=== PATIENT | male | born 1955 | race Native Hawaiian/Other Pacific Islander ===

== ENCOUNTER 2021-10-19 00:28 | Inpatient (IN) | payer SELFPAY ==
[~2021-10-19] VITALS: Ht 172.7 cm; Wt 72.6 kg
--- NOTE | 2021-10-19 00:49 | NUR ---
BIBA TAKEN TO BED #12
[2021-10-19 00:52] VITALS: BP 163/92
--- NOTE | 2021-10-19 00:52 | NUR ---
BIBA FROM HOME C/O GENERALIZED WEAKNESS. C/P WITH AMBULATION THAT COMES AND GOES AND DISAPPEARS WITH REST. PER PT AND FAMILY PT HAS BEEN FALLING, FEELS NUMBNESS, AND PER PT REPORTS "I CAN'T FEEL MY LEGS SOMETIMES". MEDHX- ASTHMA ALLX- PENICILLINS
[2021-10-19] MEDS ORDERED: NACL 0.9% 1,000 ML IV ONE (01:25)
[2021-10-19] MEDS ORDERED: ACETAMINOPHEN EXTRA STRENGTH 500 MG TAB PO ONE ×2 (01:25→02:35)
--- NOTE | 2021-10-19 01:33 | NUR ---
LAB AT BEDSIDE
[2021-10-19 01:44] LABS: BASOPHILS # (AUTO) 0.1 K/uL (0.00-0.22); BASOPHILS % (AUTO) 0.4 % (0.0-2.0); EOSINOPHILS % (AUTO) 0.2 % (0.0-4.0); HEMATOCRIT 25.2 % (36-52); HEMOGLOBIN 8.8 g/dL (12.0-18.0); LYMPHOCYTES # (AUTO) 0.9 K/uL (2.0-11.5); MEAN CORPUSCULAR HEMOGLOBIN 34 pg (27-31); MEAN CORPUSCULAR HGB CONC 35 g/dL (33-37); MEAN CORPUSCULAR VOLUME 97.6 fL (80-94); MONOCYTES # (AUTO) 1.6 K/uL (0.8-1.0); MONOCYTES % (AUTO) 8.4 % (1.7-9.3); NEUTROPHILS # (AUTO) 16.2 K/uL (1.8-7.7); PLATELET COUNT (AUTO) 597 K/uL (140-450); RED BLOOD CELL COUNT(AUTO) 2.59 MIL/uL (4.20-6.10); RED CELL DISTRIBUTION WIDTH 13.4 % (11.6-13.7); WHITE BLOOD COUNT (AUTO) 18.8 K/uL (4.8-10.8)
--- NOTE | 2021-10-19 01:57 | NUR ---
PT TO CT VIA EDUAR
[2021-10-19 02:16] LABS: ALBUMIN 2.7 g/dL (3.4-5.0); ANION GAP 18.6 (8-16); ASPARTATE AMINOTRANSFERASE 31 U/L (15-37); CARBON DIOXIDE 20.9 mmol/L (21-32); CHLORIDE 84 mmol/L (98-107); GFR ARICAN-AMERICAN 11 mL/min (>90); GLUCOSE 101 mg/dL (74-106); POTASSIUM 5.5 mmol/L (3.5-5.1); THYROID STIMULATING HORMONE 1.49 uIU/mL (0.34-3.74); TOTAL BILIRUBIN 0.6 mg/dL (0.0-1.0)
[2021-10-19 02:18] LABS: CREATININE 6.5 mg/dL (0.6-1.3); SODIUM SERUM 118 mmol/L (136-145); UREA NITROGEN, BLOOD 75 mg/dL (7-18)
[2021-10-19] MEDS ORDERED: cefTRIAXone 1,000 MG VIAL ONE (02:46)
--- NOTE | 2021-10-19 04:08 | NUR ---
Per ER MD pt indicates a need for carrizales insertion. pt made aware and pt would like some time and speak with the ER MD
--- NOTE | 2021-10-19 04:20 | NUR ---
ER MD at bedside speaking with significant other and patient about plan of care and carrizales insertion. RN female cleat blanker at bedside.
[2021-10-19 05:18] LABS: BILIRUBIN,URINE NEGATIVE (NEGATIVE); BLOOD, URINE 3+ (NEGATIVE); COLOR,URINE YELLOW (YELLOW); LEUKOCYTE ESTERASE ,URINE 3+ (NEGATIVE); NITRITE, URINE POSITIVE (NEGATIVE); UGLUCOSE NEGATIVE (NEGATIVE)
[2021-10-19 05:29] LABS: APPEARANCE,URINE SLIGHTLY HAZY (CLEAR)
[2021-10-19 05:30] LABS: WBC,URINE 20-60 /HPF (0-5)
--- NOTE | 2021-10-19 05:33 | NUR ---
pt had a wet BM. pt able to help turn. pt placed danny pads and new sheets. pt tolerated well. Safety measures are in place and will continue to monitor.
[2021-10-19] MEDS ORDERED: DOCUSATE SODIUM 100 MG GELCAP PO PRN (06:35)
[2021-10-19] MEDS ORDERED: POTASSIUM CHLORIDE 10 MEQ TABER PO PRN (06:35)
[2021-10-19] MEDS ORDERED: guaiFENesin DM 200/20 MG-10 ML 10 ML UDC PO PRN (06:35)
[2021-10-19] MEDS ORDERED: NACL 0.9% 1,000 ML IV SCH (06:35)
[2021-10-19] MEDS ORDERED: ZOLPIDEM 5 MG TAB PO PRN (06:35)
[2021-10-19] MEDS ORDERED: ACETAMINOPHEN 325 MG TAB PO PRN (06:35)
--- NOTE | 2021-10-19 07:26 | NUR ---
Pt report given to Elizabeth MOSS. Transfer of care at this time.
--- NOTE | 2021-10-19 07:37 | NUR ---
RECEIVED REPORT FROM NATHANIEL RN. ASSUMED CARE AT THIS TIME, PATIENT LAYING IN BED WITH EYES CLOSED, ON BEDSIDE PATTERNMAKER PLASTER AND PLASTIC, ALL NEEDS MET AT THIS TIME.
--- NOTE | 2021-10-19 07:45 | NUR ---
EMPTIED 1000CC OF RED CLOUDY URINE FROM PATIENTS PLUNKETT BAG
--- NOTE | 2021-10-19 07:47 | NUR ---
Patient will be admitted to care of DR. SIMON. Admited to TELE. Will go to room 110B. Belongings list completed. Report to TAURUS.
[2021-10-19 08:10] LABS: PROTHROMBIN TIME 11.1 secs (10.8-13.4)
[2021-10-19 08:11] LABS: MAGNESIUM 1.5 mg/dL (1.8-2.4); PHOSPHORUS 5.9 mg/dL (2.5-4.9)
[2021-10-19 08:13] VITALS: BP 149/101
--- NOTE | 2021-10-19 08:13 | NUR ---
RECEIVED PT FROM PATTERN DEVELOPER, VIA EDUAR, PT IS ALERT, AWAKE AND ORIENTED, ON ROOM AIR, AMBULATED USING CANE TO THE BED, IV LINE NOTED ON THE LEFT UPPER ARM G. 20 ON SALINE LOCK, PT HAS A PLUNKETT CATHETER IN PLACE DRAINING RED URINE IN BAG, NO SIGN OF DISTRESS NOTED AND WILL CONTINUE TO MONITOR PT.
[2021-10-19 08:20] LABS: CARBON DIOXIDE 20.4 mmol/L (21-32); POTASSIUM 5.4 mmol/L (3.5-5.1)
--- NOTE | 2021-10-19 08:30 | NUR ---
MRSA SWAB TO PT NOW.
[2021-10-19 08:49] LABS: CREATININE 6.3 mg/dL (0.6-1.3)
[2021-10-19] MEDS ORDERED: LEVOFLOXACIN 500 MG/D5W PREMIX 100 ML IV SCH ×2 (08:55→09:07)
[2021-10-19] MEDS: NACL 0.9% 1,000 ML IV SCH ×2 (09:36→20:58)
--- NOTE | 2021-10-19 09:36 | NUR ---
PT WAS STARTED ON IVF NS AT 70ML/HR.
[2021-10-19] MEDS: SODIUM BICARBONATE 8.4% 150 MEQ in DEXTROSE 5% 1,000 ML IV SCH (09:52)
--- NOTE | 2021-10-19 10:15 | NUR ---
PT'S PLUNKETT CATHETER WAS IRRIGATED NOW PER DR. SIMON'S ORDER
[2021-10-19 11:28] LABS: BARBITURATE, URINE NEGATIVE ng/ml (NEG <=200); BENZODIAZEPINE, URINE NEGATIVE ng/mL (NEG <=200); CANNABINOID, URINE NEGATIVE ng/mL (NEG <=50); COCAINE, URINE NEGATIVE ng/mL (NEG <=300); OPIATE, URINE NEGATIVE ng/mL (NEG <=2000); PHENCYCLIDINE SCREEN,URINE NEGATIVE ng/mL (NEG <=25)
[2021-10-19 12:00] VITALS: BP 142/102
[2021-10-19] MEDS ORDERED: MAGNESIUM OXIDE 400 MG TAB PO SCH (13:40)
--- NOTE | 2021-10-19 13:52 | NUR ---
IRRIGATED PT'S PLUNKETT CATHETER NOW UNTIL CLEAR, PER MD ORDER.
--- NOTE | 2021-10-19 14:01 | NUR ---
PT WAS GIVEN MAGNESIUM OXIDE PO 400MG FOR MAGNESIUM LEVEL OF 1.5
[2021-10-19 16:00] VITALS: BP 158/89
--- NOTE | 2021-10-19 17:27 | NUR ---
PT'S PLUNKETT CATHETER WAS IRRIGATED NOW.
--- NOTE | 2021-10-19 19:21 | NUR ---
ENDORSED PT TO NIGHT RN FOR CONTINUITY OF CARE. PT IS STABLE AT THIS TIME.
--- NOTE | 2021-10-19 19:30 | NUR ---
RECEIVED ENDORSEMENT FROM DAY SHIFT RN FOR CONTINUITY OF CARE. PT AWAKE, ALERT AND ORIENTED.ABLE TO MAKE NEEDS KNOWN. SIGNIFICANT OTHER AT BEDSIDE. PATIENT ON ROOM AIR.BREATHING EQUAL AND UNLABORED.PT ON TELE MONITOR 94. IV ON R FA G22, FLUIDS RUNNING PER MD ORDER. PLUNKETT DRAINING BLOODY URINE. ALL PRECAUTIONS IN PLACE. CALL LIGHT WITHIN REACH. WILL CONTINUE TO MONITOR.
[2021-10-19 20:00] VITALS: BP 156/91
[2021-10-19 20:09] LABS: MAGNESIUM 1.4 mg/dL (1.8-2.4); PHOSPHORUS 6.1 mg/dL (2.5-4.9)
[2021-10-19] MEDS ORDERED: SODIUM BICARBONATE 8.4% 50 MEQ/50 ML VIAL ONE (20:50)
--- NOTE | 2021-10-19 21:00 | NUR ---
SCHEDULED MEDICATIONS GIVEN. PT TOLERATED WELL. WILL CONTINUE TO MONITOR.
[2021-10-19] MEDS: MORPHINE SULFATE 2 MG/ML SYR IVP PRN (21:38)
--- NOTE | 2021-10-19 22:00 | NUR ---
PT COMPLAINING OF PAIN ON HIS PLUNKETT. IRRIGATION DONE. PT TOLERATED WELL. WILL CONTINUE TO MONITOR.
--- NOTE | 2021-10-19 23:53 | NUR ---
PT ASLEEP. BREATHING EQUAL AND UNLABORED, NO DISTRESS NOTED. ALL PRECAUTIONS IN PLACE.CALL LIGHT WITHIN REACH. WILL CONTINUE TO MONITOR.
[2021-10-20] VITALS: BP 148/87
[2021-10-20] MEDS: HYDROcodone/APAP 7.5/325 MG 1 TAB PO PRN ×4 (02:00→21:16)
[2021-10-20 04:00] VITALS: BP 158/90
[2021-10-20] MEDS: MORPHINE SULFATE 2 MG/ML SYR IVP PRN (04:02)
--- NOTE | 2021-10-20 06:51 | NUR ---
PT IS STABLE. NO ACUTE THROUGHOUT THE NIGHT. NO S/SX OF DISTRESS. ALL NEEDS ATTENDED. NO COMPLAINS OF PAIN AT THIS MOMENT. ALL PRECAUTIONS IN PLACE. CALL LIGHT WITHIN REACH. WILL ENDORSE TO AM SHIFT NURSE.
[2021-10-20 07:14] LABS: ANION GAP 11.9 (8-16); CARBON DIOXIDE 26.5 mmol/L (21-32); POTASSIUM 4.4 mmol/L (3.5-5.1)
[2021-10-20 07:21] LABS: CREATININE 4.2 mg/dL (0.6-1.3)
[2021-10-20 07:27] LABS: BASOPHILS # (AUTO) 0.1 K/uL (0.00-0.22); BASOPHILS % (AUTO) 0.6 % (0.0-2.0); EOSINOPHILS % (AUTO) 0.3 % (0.0-4.0); HEMATOCRIT 25.4 % (36-52); HEMOGLOBIN 8.9 g/dL (12.0-18.0); LYMPHOCYTES # (AUTO) 1.1 K/uL (2.0-11.5); LYMPHOCYTES % (AUTO) 8.1 % (20.5-51.1); MEAN CORPUSCULAR HEMOGLOBIN 35 pg (27-31); MEAN CORPUSCULAR HGB CONC 35 g/dL (33-37); MEAN CORPUSCULAR VOLUME 97.9 fL (80-94); MONOCYTES # (AUTO) 1.3 K/uL (0.8-1.0); MONOCYTES % (AUTO) 9.4 % (1.7-9.3); NEUTROPHILS # (AUTO) 11.5 K/uL (1.8-7.7); NEUTROPHILS % (AUTO) 81.6 % (42.2-75.2); PLATELET COUNT (AUTO) 577 K/uL (140-450); RED BLOOD CELL COUNT(AUTO) 2.59 MIL/uL (4.20-6.10); RED CELL DISTRIBUTION WIDTH 13.8 % (11.6-13.7); WHITE BLOOD COUNT (AUTO) 14.1 K/uL (4.8-10.8)
[2021-10-20 08:00] VITALS: BP 158/100
[2021-10-20] MEDS: LEVOFLOXACIN 250 MG/D5 PREMIX 50 ML IV SCH (08:10)
[2021-10-20] MEDS: SODIUM BICARBONATE 8.4% 150 MEQ in DEXTROSE 5% 1,000 ML IV SCH (08:49)
[2021-10-20] MEDS: ONDANSETRON 4 MG/2 ML VIAL IM/IVP PRN ×3 (08:57→21:09)
--- NOTE | 2021-10-20 10:13 | NUR ---
PATIENT HAS BEEN SCREENED AND CATEGORIZED LOW NUTRITION RISK. PATIENT WILL BE SEEN WITHIN 7 DAYS OF ADMISSION. 10/26/21 REVIEWED BY TERESA GARG RD
[2021-10-20] MEDS: NACL 0.9% 1,000 ML IV SCH (11:16)
[2021-10-20 12:00] VITALS: BP 170/90
--- NOTE | 2021-10-20 12:42 | NUR ---
P.T. NOTES P.T. EVAL COMPLETED; REFER TO EVAL FOR DETAILS.
--- NOTE | 2021-10-20 15:32 | NUR ---
DC PLANNING: THE PATIENT PRESENTED WITH C/O GENERALIZED WEAKNESS, H/O COMPLICATIONS SECONDARY TO COVID. T-99.6, B/P 163/92, WBC'S 18.8, NA+ 118, GAP 18.6, CR 6.5. UA POSITIVE, BLOOD AND URINE CULTURES ORDERED. GIVEN IVF'S AND ROCEPHIN IN ED, STARTED ON LEVAQUIN IV, BICARB, IVF'S. ORDERS FOR CONSULTS WITH NEUROLOGY, NEPHROLOGY AND UROLOGY. CT ABDOMEN SHOWS SEVERAL BILATERAL HYDROURETERONEPHROSIS, RENAL US SHOWS NO OBSTRUCTION. CM SPOKE WITH THE PATIENT AND HIS GIRLFRIEND DENI, THE PATIENT CURRENTLY RENTS A ROOM IN [place] BUT IS MOVING TO [facility]'S HOUSE IN [place], ADDRESS [address]. THE PATIENT HAS APPLIED FOR M/KENNY, THE [employer]IME [employer] WORKER IS FOLLOWING UP ON STATUS. THE PATIENT HAS HAD PROGRESSIVE LE WEAKNESS SINCE EARLIER THIS YEAR AND HAD COVID 2 YEARS AGO. HE IS SELF-PAY AND HAS NOT SEEN A DOCTOR IN MANY YEARS AND DID NOT SEE ONE WHEN HE HAD COVID. HE WORKS FOR [employer] BUT HAS NOT BEEN ABLE TO WORK RECENTLY AND HAS NO OTHER INCOME SOURCE. HE USES A CANE AND IS ABLE TO STAND AND WALK A FEW FEET BUT IS WEAKER TOWARDS THE END OF THE DAY AND REQUIRES MORE ASSISTANCE. HE REQUIRES SOME ASSISTANCE WITH ADL'S, DENI IS INTERESTED IN INFORMATION REGARDING IHSS TO BECOME HIS CAREGIVER ONCE HIS M/KENNY IS IN PLACE. THE PATIENT WILL DC TO HER HOUSE ONCE HE'S CLINICALLY STABLE, CM WILL FOLLOW.
[2021-10-20 16:00] VITALS: BP 143/93
--- NOTE | 2021-10-20 19:30 | NUR ---
RECEIVED ENDORSEMENT FROM DAY SHIFT NURSE FOR CONTINUITY OF CARE. PT IS AWAKE, ALERT AND ORIENTED X 4. PLUNKETT CATH INTACT AND PATENT, NOTED RED URINE DRAINING DOWN TO PLUNKETT BAG BY GRAVITY. IV SALINE LOCK AT LEFT FOREARM 22G INTACT AND PATENT. SKIN INTACT. CONTINUE MONITORING.
[2021-10-20 20:00] VITALS: BP 144/85
--- NOTE | 2021-10-20 21:09 | NUR ---
PT COMPLAINTS OF NAUSEA, ZOFRAN ADMINISTERED ORDERED.
--- NOTE | 2021-10-20 21:16 | NUR ---
PT COMPLAINTS OF PAIN OB ABDOMEN, PAIN MEDICATIONS ADMINISTERED ORDERED.
--- NOTE | 2021-10-20 22:16 | NUR ---
PT ASLEEP. NO FACIAL GRIMACING.
[2021-10-21] VITALS: BP 155/71
[2021-10-21] MEDS: NACL 0.9% 1,000 ML IV SCH ×3 (01:34→21:27)
[2021-10-21 04:00] VITALS: BP 136/83
[2021-10-21] MEDS: HYDROcodone/APAP 7.5/325 MG 1 TAB PO PRN (04:44)
--- NOTE | 2021-10-21 04:44 | NUR ---
PT COMPLAINTS OF PAIN ON ABDOMEN, PAIN MEDICATION NORCO ADMINISTERED ORDERED.
[2021-10-21] MEDS: ONDANSETRON 4 MG/2 ML VIAL IM/IVP PRN (04:46)
--- NOTE | 2021-10-21 04:46 | NUR ---
PT COMPLAINTS IF HE TAKES PAIN PILL HE FEELS NAUSEA, PT ADMITTED PAIN PILL NORCO IS EFFECTIVE TO CONTROL PAIN. PT REQUEST NAUSEA MED. ZOFRAN ADMINISTERED ORDERED.
--- NOTE | 2021-10-21 05:44 | NUR ---
PT IS ASLEEP, NO VOMITING.
[2021-10-21 07:27] LABS: ANION GAP 8.9 (8-16); CREATININE 3.3 mg/dL (0.6-1.3); POTASSIUM 3.9 mmol/L (3.5-5.1)
[2021-10-21 07:33] LABS: BASOPHILS % (AUTO) 0.3 % (0.0-2.0); EOSINOPHILS # (AUTO) 0.1 K/uL (0-0.4); EOSINOPHILS % (AUTO) 0.6 % (0.0-4.0); HEMATOCRIT 24.1 % (36-52); HEMOGLOBIN 8.5 g/dL (12.0-18.0); LYMPHOCYTES # (AUTO) 0.8 K/uL (2.0-11.5); MEAN CORPUSCULAR HEMOGLOBIN 34 pg (27-31); MEAN CORPUSCULAR HGB CONC 35 g/dL (33-37); MEAN CORPUSCULAR VOLUME 97.1 fL (80-94); MONOCYTES % (AUTO) 7.7 % (1.7-9.3); NEUTROPHILS # (AUTO) 11.5 K/uL (1.8-7.7); NEUTROPHILS % (AUTO) 85.4 % (42.2-75.2); PLATELET COUNT (AUTO) 548 K/uL (140-450); RED BLOOD CELL COUNT(AUTO) 2.48 MIL/uL (4.20-6.10); RED CELL DISTRIBUTION WIDTH 13.7 % (11.6-13.7); WHITE BLOOD COUNT (AUTO) 13.4 K/uL (4.8-10.8)
--- NOTE | 2021-10-21 07:35 | NUR ---
PT IS STABLE, NO CHANGE OF CONDITION. ALL SAFETY MEASURES IN PLACE. ENDORSED TO DAY SHIFT NURSE FOR CONTINUITY OF CARE.
[2021-10-21 08:00] VITALS: BP 157/89
[2021-10-21] MEDS: LEVOFLOXACIN 250 MG/D5 PREMIX 50 ML IV SCH (08:04)
--- NOTE | 2021-10-21 11:43 | NUR ---
HOME HEALTH REFERRAL PACKET WAS FAXED TO [facility] [phone] FOR PT. Addendum: 10/21/21 at 1328 by Angela Lin PER CM, CM FIELDED CALL FROM [facility] WHO DECLINED PATIENT Addendum: 10/21/21 at 1523 by Angela Lin SS PATIENT MADE AWARE THAT HH FOR PT WAS DENIED. SW NOTIFIED PATIENT TO FOLLOW UP WITH PCP
[2021-10-21 12:00] VITALS: BP 143/92
--- NOTE | 2021-10-21 15:19 | NUR ---
DC PLANNING : SW MET WITH PATIENT AT BEDSIDE TO COMPLETE ASSESSMENT. PATIENT REPORTS CURRENTLY RENTING A ROOM HOWEVER, PATIENT REPORTS THAT HE WILL BE MOVING IN WITH HIS PARTNER [place], NEW ADDRESS; [address] [place] [id number]. PATIENT IDENTIFIED DENI JOHNSON, EMERGENCY CONTACT AND MDM. PATIENT DENIES HAVING AD IN PLACE AND ACCEPTED AD OFFERED BY [facility]. PATIENT REPORTS BEING INCONSISTENT WITH MEETING WITH PCP AND REPORTS THAT HE HAS NOT SEEN A DR IN 12 YRS. PATIENT WAS ADMITTED SELF PAY HOWEVER, REPORTS THAT HE HAS MEDI-KENNY. PATIENT WAS REFERRED TO [facility] WHO IS WORKING WITH PATIENT ON MEDI-KENNY ELIGIBILITY. PATIENT DENIES TAKING MEDICATIONS AT THIS TIME AND DENIES BARRIERS IN ACCESSING MEDICATIONS, IF NEEDED. PATIENT REPORTS IF MEDICATIONS ARE REQUIRED HE PREFERS TO GENERAL STUDIES PROGRAM CHAIR FROM [facility] ON [address] IN THE [facility]. PATIENT REPORTS BEING AMBULATORY WITH DME ASSISTANCE; FWW, CANE AND SHOWER CHAIR. PATIENT REPORTS THAT HE REQUIRES SOME ASSISTANCE WITH ADL'S, WHICH HIS PARTNER CURRENTLY AIDS IN. PATIENT REQUESTED INFORMATION FOR [facility], [facility] PROVIDED. PATIENT DENIES MH HX. PATIENT REPORTS SUBSTANCE USE HX, PRIMARY SUBSTANCE OF CHOICE WAS ALCOHOL, WHICH HE REPORTS HE HAS USED FAR BACK HE CAN REMEMBER. PATIENT REPORTS THAT HE QUIT DRINKING ABOUT FOUR WEEKS AGO. PATIENT REPORTS THAT HE SMOKES MARIJUANA AT NIGHT " TO RELAX" PATIENT DOES NOT BELIEVE HIS MARIJUANA USE IS A PROBLEM. PATIENT REPORTS TOBACCO USE UPWARD OF A PACK A DAY. [facility] PROVIDED PATIENT WITH PSYCHOEDUCATION ON THE CASTING SUPERVISOR SUBSTANCE USE. PATIENT WAS RECEPTIVE, HOWEVER DECLINED SUBSTANCE USE RESOURCES OFFERED BY [facility]. PATIENT DENIES FOOD INSECURITY AND REPORTS RECEIVING [facility] [employer] BENEFITS OF $250/MONTH. [facility] PROVIDED PATIENT WITH [facility] INFORMATION AND RESOURCES. [facility] INQUIRED ON ADDITIONAL RESOURCES NEEDED, PATIENT DECLINED AT THIS TIME. PER PHYSICIAN REQUEST, [facility] SCHEDULED APPT WITH [facility] [phone] FOR OUTPATIENT FOLLOW UP AND REFERRAL NEEDED FOR UROLOGY. [facility] OUTREACHED TO CLINIC [phone] AND SPOKE WITH ROBERTO WHO SCHEDULED FOLLOW UP APPT FOR 10/24/21 AT 10:30AM WITH AT [address] [facility] [id number]. [facility] PROVIDED PATIENT WITH APPT CARD THAT INCLUDED APPT DETAILS. PATIENT WAS APPRECIATIVE AND ACCEPTED APPT.
[2021-10-21 16:00] VITALS: BP 133/75
[2021-10-21] MEDS ORDERED: VANCOMYCIN PER PHARMACY MC PRN (16:45)
[2021-10-21] MEDS ORDERED: VANCOMYCIN 1,000 MG in DEXTROSE 5% 250 ML IV SCH (18:00)
--- NOTE | 2021-10-21 18:27 | NUR ---
INFORMED PT AND FAMILY THAT CM HAS A TENTATIVE URO APPT ON 10/24/21 AND A VANCOMYCIN LEVEL WILL BE DRAWN IN A.M. - SO PT WILL AT LEAST NEED TO STAY OVERNIGHT. PT UNDERSTANDS.
--- NOTE | 2021-10-21 19:53 | NUR ---
WANTS TO CALL GIRLFRIEND PRIOR TO D/C OF PLUNKETT. SAYS HE WANTS TO KEEP AND IRRIGATE TONIGHT. ICE CHIPS PER REQUEST. WALTER SANTACRUZ RN
[2021-10-21 20:00] VITALS: BP 136/97
--- NOTE | 2021-10-21 20:15 | NUR ---
HANDOFF WITH ISA DICKSON. WALTER SANTACRUZ RN
--- NOTE | 2021-10-21 20:20 | NUR ---
TOOK OVER THE PATIENT FROM ISA WATSON. PATIENT LAYING QUIETLY IN BED. NO SIGN AND SYMPTOMS OF DISTRESS NOTED AT THIS TIME AND NO COMPLAIN FROM THE PATIENT. IVF INFUSING ORDERED. PLUNKETT CATHETER DRAINING CRANBERRY COLORED URINE WITH LITTLE CLOTS. DISCUSSED POC WITH THE PATIENT AND VERBALIZED UNDERSTANDING. CALL LIGHT WITHIN REACH. WILL CONTINUE POC AND MONITORING.
--- NOTE | 2021-10-21 22:00 | NUR ---
PER ENDORSEMENT WITH ISA VITALE , PT REQUESTED TO KEEP HIS PLUNKETT CATHETER ALL NIGHT. PATIENT ALSO VERBALIZED TO ME THAT HE WANTED HIS CATHETER NOT TO BE TAKEN OUT FOR FEAR OF NOT BEING ABLE TO VOID WHEN ITS OUT.
[2021-10-22] VITALS: BP 155/90
--- NOTE | 2021-10-22 | NUR ---
PATIENT VITALS SIGNS STABLE, AFEBRILE, SATING 100% ON RA. NOT IN ANY DISTRESS AND NO COMPLAIN AT THIS TIME. SR ON TELE MONITOR, HR-91. CALL LIGHT WITHIN REACH. WILL CONTINUE MONITORING.
--- NOTE | 2021-10-22 02:00 | NUR ---
MADE ROUNDS. PATIENT ASLEEP AT THIS TIME. VISIBLE CHEST RISE AND FALL NOTED. PT NOT ON ANY DISTRESS. CALL LIGHT WITHIN REACH. WILL CONTINUE OBSERVATION.
[2021-10-22 04:00] VITALS: BP 150/92
--- NOTE | 2021-10-22 04:00 | NUR ---
PATIENT VITALS SIGNS STABLE, AFEBRILE, SATING 100% ON RA. NOT IN ANY DISTRESS AND NO COMPLAIN AT THIS TIME. SR ON TELE MONITOR, HR-81. CALL LIGHT WITHIN REACH. WILL CONTINUE MONITORING.
--- NOTE | 2021-10-22 04:54 | NUR ---
PATIENT URINE IN THE PLUNKETT BAG IS NOW BLOOD TINGED, NO CLOTS NOTED. NO COMPLAIN OF DISCOMFORT FROM THE PATIENT. WILL CONTINUE TO MONITOR.
--- NOTE | 2021-10-22 05:59 | NUR ---
NO ACUTE EVENT THROUGHOUT THE NIGHT. PATIENT STABLE AND NOT ON ANY DISTRESS. PATIENT HAS NO COMPLAIN AT THIS TIME. WILL ENDORSE THE PATIENT TO THE ONCOMING NURSE FOR CONTINUITY OF CARE.
[2021-10-22 07:16] LABS: BASOPHILS # (AUTO) 0.1 K/uL (0.00-0.22); BASOPHILS % (AUTO) 0.6 % (0.0-2.0); EOSINOPHILS # (AUTO) 0.1 K/uL (0-0.4); EOSINOPHILS % (AUTO) 1.3 % (0.0-4.0); HEMATOCRIT 23.1 % (36-52); HEMOGLOBIN 8.1 g/dL (12.0-18.0); LYMPHOCYTES % (AUTO) 9.4 % (20.5-51.1); MEAN CORPUSCULAR HEMOGLOBIN 34 pg (27-31); MEAN CORPUSCULAR HGB CONC 35 g/dL (33-37); MEAN CORPUSCULAR VOLUME 97.2 fL (80-94); MONOCYTES % (AUTO) 8.9 % (1.7-9.3); NEUTROPHILS # (AUTO) 8.9 K/uL (1.8-7.7); NEUTROPHILS % (AUTO) 79.8 % (42.2-75.2); PLATELET COUNT (AUTO) 504 K/uL (140-450); RED BLOOD CELL COUNT(AUTO) 2.38 MIL/uL (4.20-6.10); RED CELL DISTRIBUTION WIDTH 13.6 % (11.6-13.7); WHITE BLOOD COUNT (AUTO) 11.2 K/uL (4.8-10.8)
[2021-10-22 07:22] LABS: ANION GAP 12.4 (8-16); CARBON DIOXIDE 28.5 mmol/L (21-32); CREATININE 2.9 mg/dL (0.6-1.3); POTASSIUM 3.9 mmol/L (3.5-5.1)
--- NOTE | 2021-10-22 07:24 | NUR ---
ENDORSED PATIENT TO THE ONCOMING NURSE FOR CONTINUITY OF CARE. PATIENT STABLE. SIGNING OFF.
[2021-10-22 08:00] VITALS: BP 150/88
--- NOTE | 2021-10-22 08:05 | NUR ---
RECEIVE ENDORSEMENT FROM PM SHIFT NURSE WHILE PATIENT REST IN BED, PIV R. FOREARM NS@70ML/HR INFUSING. DIMITRIOS PRESENT. WILL CONTINUE TO MONITOR.
[2021-10-22] MEDS ORDERED: TAMSULOSIN 0.4 MG CAP PO SCH (08:30)
[2021-10-22] MEDS ORDERED: VANCOMYCIN 1,000 MG in DEXTROSE 5% 250 ML IV SCH (09:00)
[2021-10-22] MEDS ORDERED: VANCOMYCIN HCL 1.25 GM in DEXTROSE 5% 250 ML IV SCH ×4 (09:00)
[2021-10-22] MEDS: hydrALAZINE 25 MG TAB PO SCH ×2 (11:47→18:19)
[2021-10-22 16:00] VITALS: BP 153/87
[2021-10-22] MEDS ORDERED: TAMS0.4C96 PO (17:00)
[2021-10-22] MEDS ORDERED: SULF-58 PO (17:00)
[2021-10-22] MEDS ORDERED: METO50TE2 PO (17:06)
[2021-10-22 18:03] VITALS: BP 153/87
--- NOTE | 2021-10-22 19:34 | NUR ---
DISCHARGE PATIENT HOME PER PCP ORDER WITH STABLE CONDITION. WRIST BAND & IV ACCESS REMOVED. DISCHARGE INSTRUCTION GIVEN, DISCHARGE CONSENT SIGNED
[2021-10-22] MEDS ORDERED: METOPROLOL SUCCINATE 50 MG TABER PO SCH (21:00)
== END 2021-10-22 19:34 | disposition home or self-care (01) | DRG 871 ==
LOC: MED 00:28 → MTU 06:36
PROVIDERS: ADMIT Student in an Organized Health Care Education/Training Program; ATTEND Student in an Organized Health Care Education/Training Program
DX: A41.1 Sepsis due to other specified staphylococcus (principal); E43 Unspecified severe protein-calorie malnutrition; N17.0 Acute kidney failure with tubular necrosis; N13.6 Pyonephrosis; D63.8 Anemia in other chronic diseases classified elsewhere; E83.39 Other disorders of phosphorus metabolism; E83.42 Hypomagnesemia; E87.5 Hyperkalemia; Z20.822 Contact with and (suspected) exposure to COVID-19; Z88.0 Allergy status to penicillin; Z79.899 Other long term (current) drug therapy; Z86.16 Personal history of COVID-19; Z68.24 Body mass index [BMI] 24.0-24.9, adult
CPT/HCPCS: 36415; 71045; 71250; 72131; 76770; 80048; 80053; 80202; 80305; 81001; 82150; 82550; 82570; 82728; 83540; 83605; 83690; 83735; 83880; 84100; 84156; 84300; 84443; 84484; 85025; 85610; 85730; 87040; 87081; 87086; 87186; 93005; 96361; 96365; 97110; 97112; 97116; 97530; 99291; J0696; J1956; J2270; J2405; J3370; J3490; J7060; Q0092

== ENCOUNTER 2021-10-24 12:03 | Emergency (ER) | payer MEDICAID ==
[~2021-10-24] VITALS: Ht 172.7 cm; Wt 59.9 kg
[~2021-10-24 12:03] MED LIST: METO50TE2 PO; SULF-58 PO; TAMS0.4C96 PO
[2021-10-24 12:47] VITALS: BP 147/87
[2021-10-24 13:57] LABS: BASOPHILS # (AUTO) 0.1 K/uL (0.00-0.22); BASOPHILS % (AUTO) 0.6 % (0.0-2.0); EOSINOPHILS # (AUTO) 0.1 K/uL (0-0.4); EOSINOPHILS % (AUTO) 0.4 % (0.0-4.0); HEMATOCRIT 23.2 % (36-52); LYMPHOCYTES # (AUTO) 1.2 K/uL (2.0-11.5); LYMPHOCYTES % (AUTO) 7.1 % (20.5-51.1); MEAN CORPUSCULAR HEMOGLOBIN 34 pg (27-31); MEAN CORPUSCULAR HGB CONC 34 g/dL (33-37); MEAN CORPUSCULAR VOLUME 97.4 fL (80-94); MONOCYTES # (AUTO) 1.2 K/uL (0.8-1.0); MONOCYTES % (AUTO) 7.2 % (1.7-9.3); NEUTROPHILS # (AUTO) 13.9 K/uL (1.8-7.7); NEUTROPHILS % (AUTO) 84.7 % (42.2-75.2); PLATELET COUNT (AUTO) 397 K/uL (140-450); RED BLOOD CELL COUNT(AUTO) 2.38 MIL/uL (4.20-6.10); RED CELL DISTRIBUTION WIDTH 13.8 % (11.6-13.7); WHITE BLOOD COUNT (AUTO) 16.5 K/uL (4.8-10.8)
--- NOTE | 2021-10-24 14:15 | NUR ---
PATIENT TO BED 5.
[2021-10-24] MEDS ORDERED: LIDOCAINE/PRILOCAINE 2.5% 5 GM TUBE TP ONE ×2 (14:34→14:40)
[2021-10-24] MEDS ORDERED: DIAZEPAM PFS 10 MG/2 ML SYR IM ONE (14:40)
[2021-10-24 14:52] LABS: ALBUMIN 2.6 g/dL (3.4-5.0); ANION GAP 15.5 (8-16); CARBON DIOXIDE 25.3 mmol/L (21-32); POTASSIUM 4.8 mmol/L (3.5-5.1); TOTAL BILIRUBIN 0.6 mg/dL (0.0-1.0)
[2021-10-24 14:54] LABS: CREATININE 4.2 mg/dL (0.6-1.3)
--- NOTE | 2021-10-24 15:00 | NUR ---
66 Y/O MALE C/O URINARY RETENTION X 2 DAYS. WAS ADMITTED TO [facility] 10/19-10/22. PMH: HTN ALL: PCN
--- NOTE | 2021-10-24 15:30 | NUR ---
ATTEMPTED TO PLACE REGULAR PLUNKETT AND COUDE. NEITHER WOULD ADVANCE
--- NOTE | 2021-10-24 16:00 | NUR ---
CALLED DR ANTUNEZ IN UROLOGY WAITING FAMILY PRESERVATION OFFICER BACK.
--- NOTE | 2021-10-24 17:00 | NUR ---
Patient appears to be resting comfortably in bed. Vital Signs within normal limits. Respirations even and unlabored.
--- NOTE | 2021-10-24 17:23 | NUR ---
REPORT RECEIVED FROM TEDDY MOSS. ASSUMED CARE AT THIS TIME
--- NOTE | 2021-10-24 18:18 | NUR ---
Dr. Fish at bedside evaluating patient.
[2021-10-24] MEDS ORDERED: IBUP-2213 PO (19:19)
[2021-10-24 19:30] VITALS: BP 149/82
--- NOTE | 2021-10-24 19:30 | NUR ---
Patient discharged with v/s stable. Written and verbal after care instructions FOR UTI AND ACUTE URINARY RETENTION given and explained. Patient alert, oriented and verbalized understanding of instructions. Ambulatory with steady gait. All questions addressed prior to discharge. ID band removed. Patient advised to follow up with PMD. Rx of IBUPROFEN given. Opportunity to ask questions provided and answered.
== END 2021-10-24 19:30 | disposition home or self-care (01) ==
LOC: MED 12:03
DX: R33.9 Retention of urine, unspecified (principal); N39.0 Urinary tract infection, site not specified; I10 Essential (primary) hypertension; F17.200 Nicotine dependence, unspecified, uncomplicated; Z79.899 Other long term (current) drug therapy; Z88.0 Allergy status to penicillin; Z98.890 Other specified postprocedural states
CPT/HCPCS: 36415; 80053; 81002; 85025; 87086; 96372; 99285; J3360

== ENCOUNTER 2022-01-18 07:26 | Emergency (ER) | payer MEDICAID, OTHER ==
[~2022-01-18] VITALS: Ht 175.3 cm; Wt 73.0 kg
[~2022-01-18 07:26] MED LIST changes: +IBUP-2213 PO
[2022-01-18 07:40] VITALS: BP 164/84
--- NOTE | 2022-01-18 07:52 | NUR ---
TO ER BED 1
--- NOTE | 2022-01-18 08:00 | NUR ---
PT RECEIVED, CARE ASSUMED. PT PRESENTS SELF TO ER WITH C/O SEVERE, MID, LOWER ABDO PAIN, DUE TO URINARY RETENTION. PT HAS A F/C IN PLACE. NO URINE DRIPPING.
--- NOTE | 2022-01-18 08:30 | NUR ---
FLUSHED F/C. DRAINAGED NOTED. APPROX 650 MLS OF URINE CAME OUT
[2022-01-18 09:10] VITALS: BP 139/85
--- NOTE | 2022-01-18 09:11 | NUR ---
Patient discharged with v/s stable. Written and verbal after care instructions given and explained. Patient verbalized understanding. Ambulatory with steady gait. All questions addressed prior to discharge. Advised to follow up with PMD.
== END 2022-01-18 09:10 | disposition home or self-care (01) ==
LOC: MED 07:26
DX: T83.098A Other mechanical complication of other urinary catheter, initial encounter (principal); N40.0 Benign prostatic hyperplasia without lower urinary tract symptoms; I10 Essential (primary) hypertension; F17.200 Nicotine dependence, unspecified, uncomplicated; Z71.6 Tobacco abuse counseling; Z79.1 Long term (current) use of non-steroidal anti-inflammatories (NSAID); Z79.899 Other long term (current) drug therapy; Z79.2 Long term (current) use of antibiotics; Z88.0 Allergy status to penicillin; Y84.6 Urinary catheterization as the cause of abnormal reaction of the patient, or of later complication, without mention of misadventure at the time of the procedure
CPT/HCPCS: 99281